=== PATIENT | male | born 1980 | race Caucasian/White ===

== ENCOUNTER 2017-11-24 10:57 | Emergency (ER) | payer BC ==
--- NOTE | 2017-11-24 12:02 | ED ---
Back Pain - HPI Summary HPI Summary: This pt is a 37 y.o male presenting to the [facility] with a chief complaint of lower back pain. The onset was described as a few months ago, however, pt states that the back was reinjured on 11/23/17 (as per triage report). The pt has taken ibuprofen 800 mg at 0800. The pt was next to a car and working on the car (taking a bolt out) where he injured his back. He states that there is decreased range of motion. No Tylenol or Motrin was taken. The pt was able to ambulate without difficulty and without any assistance. Denies numbness, urinary symptoms, uncontrollable defecation, NERI, blurry vison, ear ache, soar throat, fevers, chills, chest pain, sob, abd pain, hematuria, swelling in the LE , rashes or bruises - History of Current Complaint Chief Complaint: EDBackInjuryPain Stated Complaint: LOWER BACK PAIN Pain Intensity: 4 - Allergies/Home Medications Allergies/Adverse Reactions: Allergies Allergy/AdvReac Type Severity Reaction Status Date / Time No Known Allergies Allergy Verified 11/24/17 11:04 Home Medications: Home Medications Ibuprofen TAB* [Motrin TAB* 400 MG] 400 - 800 mg PO TID 11/24/17 [History Confirmed 11/24/17] PMH/Surg Hx/FS Hx/Imm Hx Endocrine/Hematology History: Denies: Hx Diabetes, Hx Thyroid Disease Cardiovascular History: Denies: Hx Hypercholesterolemia, Hx Hypertension, Hx Peripheral Vascular Disease Musculoskeletal History: Denies: Hx Arthritis, Hx Osteoporosis Sensory History: Denies: Hx Cataracts, Hx Contacts or Glasses, Hx Glaucoma Opthamlomology History: Denies: Hx Cataracts, Hx Contacts or Glasses, Hx Glaucoma Neurological History: Denies: Hx Headaches, Hx Seizures, Hx Transient Ischemic Attacks (TIA) Psychiatric History: Denies: Hx Anxiety, Hx Depression - Surgical History Surgery Procedure, Year, and Place: appendectomy as a child Infectious Disease History: No Infectious Disease History: Denies: Traveled Outside the [place] in Last 30 Days - Family History Family History: Reviewed and noncontributory - Social History Occupation: Employed Full-time Lives: With Family Alcohol Use: Weekly Substance Use Type: Reports: None Smoking Status (MU): Never Smoked Tobacco Review of Systems Negative: Fever, Chills Negative: Blurred Vision Negative: Sore Throat Negative: Chest Pain Negative: Shortness Of Breath Gastrointestinal: Other - Negative uncontrollable defecation Negative: Abdominal Pain Positive: no symptoms reported. Negative: hematuria Musculoskeletal: Other - Lower back pain Positive: Decreased ROM - About the lower back, Other - Normal Ambulation. Negative: Edema Negative: Rash, Bruising Negative: Headache, Numbness Psychological: Normal All Other Systems Reviewed And Are Negative: No Physical Exam - Summary Physical Exam Summary: Appearance: Alert, conversive, nontoxic appearing Skin: Warm, dry, no mottling, no rashes, no contusions HEENT: EOMI, PERRL, moist mucous membranes Neck: No masses on the neck, supple Respiratory: Clear to auscultation, breath sounds present, no rales, no rhonchi , no wheezes Cardiovascular: RRR, pulses are symmetrical in both lower and upper extremities Abdomen: Soft, non-tender Bowel Sounds: Present Musculoskeletal: No CVA tenderness, no obvious deformity, moving all extremities in a grossly normal manner no appreciable tenderness no deformities, full ROM, ambulated 30 feet without any difficulty Neurological: A&Ox3, CN II-XII Intact, moving all extremities symmetrically Psychiatric: Normal affect and mood Triage Information Reviewed: Yes Vital Signs On Initial Exam: Initial Vitals Temp Pulse Resp BP Pulse Ox 97.2 F 71 16 148/94 98 11/24/17 11:02 11/24/17 11:02 11/24/17 11:02 11/24/17 11:02 11/24/17 11:02 Vital Signs Reviewed: Yes Diagnostics - Vital Signs Vital Signs Temp Pulse Resp BP Pulse Ox 11/24/17 11:02 97.2 F 71 16 148/94 98 - Laboratory Lab Statement: Any lab studies that have been ordered have been reviewed, and results considered in the medical decision making process. Back Pain Course/Dx - Course Course Of Treatment: The pt is a 37 y/o male with a chief complaint of lower back pain. The pt upon evaluation was able to ambulate normally and had full ROM. We recommended the pt to take tylenol, motrin and Flexril while complementing medication with streches to improve back pain. The back pain was also reported to have been chronic (past few months). The pt will be discharged home with a dx of lower back muscle strain. - Diagnoses Provider Diagnoses: Strain of muscle, fascia and tendon of lower back, sequela Discharge - Sign-Out/Discharge Documenting (check all that apply): Patient Departure - Discharged home - Discharge Plan Condition: Stable Disposition: HOME Prescriptions: Cyclobenzaprine TAB* [Flexeril 10 MG TAB*] 10 mg PO TID PRN #[id number] tab MDD 3 PRN Reason: Pain Patient Education Materials: Low Back Strain (ED) Referrals: [facility] [Provider Group] No Primary Care Phys,[facility] [Primary Care Provider] - Additional Instructions: Take tylenol 650mg and Motrin 600mg by mouth every 6 hours for pain for the next 24 hours. take the flexeril as needed for muscle spasms. Do the stretching exercises as instrutced. Use the heating pad as instructed. massages to your back and warm showers to your back will also help. return if worse or any new symptoms. - Attestation Statements Document Initiated by Scribe: Yes Documenting Scribe: Orville Galicia Provider For Whom Scribe is Documenting (Include Credential): Dr. Bing Veloz Scribe Attestation: Orville Martinez, scribed for Dr. Bing Veloz on 11/24/17 at 1226.
[2017-11-24 12:04] VITALS: BP 130/87
== END 2017-11-24 12:03 | disposition home or self-care (01) ==
LOC: ED 10:57
DX: S39.012S Strain of muscle, fascia and tendon of lower back, sequela (principal); M54.5 Low back pain; X50.9XXS Other and unspecified overexertion or strenuous movements or postures, sequela
CPT/HCPCS: 99282